=== PATIENT | female | born 2000 | race African-American/Black ===

== ENCOUNTER 2018-05-22 13:19 | Emergency (ER) | payer MEDICAID, OTHER ==
[~2018-05-22] VITALS: Ht 162.6 cm; Wt 55.0 kg
[2018-05-22] MEDS ORDERED: ONDANSETRON HCL 4MG/2ML INJ IV STA (14:10)
[2018-05-22] MEDS ORDERED: SODIUM CHLORIDE 0.9% 1,000 ML IV ONE (14:10)
[2018-05-22] MEDS ORDERED: FAMOTIDINE 20MG/2ML VIAL IV ONE (14:15)
[2018-05-22 15:28] LABS: BASOPHILS % 0.4 % (0.0-2.0); EOSINOPHILS % 3.3 % (0.0-5.0); HEMATOCRIT. 33.5 % (36.0-48.0); LYMPHOCYTES % 17.4 % (20.0-50.0); MEAN CORPUSCULAR HEMOGLOBIN 29.4 pg (28.0-32.0); MEAN CORPUSCULAR VOLUME 89.1 fL (81.0-99.0); MEAN PLATELET VOLUME 8.3 fl (7.4-10.4); MONOCYTES % 6.1 % (2.0-8.0); NEUTROPHILS % 72.8 % (40.0-76.0); PLATELET 207 x1000/uL (130-400); RED BLOOD CELL COUNT 3.76 mill/uL (4.2-5.4); RED CELL DISTRIBUTION WIDTH 14.7 % (11.6-14.6)
[2018-05-22 15:31] LABS: PROTHROMBIN TIME 10.2 sec (9.1-11.1)
[2018-05-22 15:32] LABS: CHLORIDE 106 mEq/L (98-107)
[2018-05-22 15:38] LABS: CLARITY URINE CLEAR (CLEAR); COLOR URINE YELLOW (YELLOW); KETONES URINE NEGATIVE (NEGATIVE); LEUKOCYTE ESTERASE URINE 2+ (NEGATIVE); NITRITE URINE NEGATIVE (NEGATIVE); OCCULT BLOOD URINE NEGATIVE (NEGATIVE); PROTEIN URINE NEGATIVE (NEGATIVE); SPECIFIC GRAVITY URINE 1.005 (1.005-1.030); UROBILINOGEN URINE 0.2 E.U./dL (0.2-1.0)
[2018-05-22 15:56] LABS: B-HCG QUANTITATIVE 40646 mIU/mL (<3)
[2018-05-22] MEDS ORDERED: ACETAMINOPHEN 325MG TABLET PO ONE (16:45)
[2018-05-22] MEDS ORDERED: CEPHALEXIN 250MG CAPSULE PO ONE (17:00)
[2018-05-22 17:44] VITALS: BP 117/71
== END 2018-05-22 17:49 | disposition home or self-care (01) ==
LOC: ER 13:19
DX: O23.41 Unspecified infection of urinary tract in pregnancy, first trimester (principal); O26.891 Other specified pregnancy related conditions, first trimester; O99.011 Anemia complicating pregnancy, first trimester; R55 Syncope and collapse; Z3A.11 11 weeks gestation of pregnancy
CPT/HCPCS: 36415; 76801; 76817; 80053; 81003; 81025; 83690; 84702; 85025; 85610; 86850; 86900; 86901; 96360; 96361; 99284; J7030; J2405; J3490